=== PATIENT | female | born 1945 ===

== ENCOUNTER → 2024-03-01 09:42 | Outpatient (REF) | payer MEDICARE, OTHER, SELFPAY ==
[2024-03-01 11:45] LABS: ALT (SGPT) 16 U/L (0-35); AST (SGOT) 26 U/L (14-36); Albumin 4.6 g/dl (3.5-5.0); Alkaline Phosphatase 97 U/L (38-126); Blood Urea Nitrogen 14 mg/dl (7-17); Carbon Dioxide 26 mmol/L (22-30); Chloride 101 mmol/L (98-107); Glucose 105 mg/dl (70-99); HDL Cholesterol 59 mg/dl; LDL Cholesterol, Calculated 33 mg/dl; Potassium 4.4 mmol/L (3.5-5.1); Sodium 138 mmol/L (135-145); Total Bilirubin 0.5 mg/dl (0.2-1.3); Total Cholesterol 134 mg/dl (50-199); Total Protein 6.9 g/dl (6.3-8.2); Triglyceride 211 mg/dl (10-149); Very Low Density Lipoprotein 42 mg/dl (0-30); eGFR > 60.00
[2024-03-01 11:53] LABS: Glycohemoglobin (HgbA1c) 6.9 % (4.0-5.6)
[2024-03-01 12:38] LABS: Vitamin B12 491 pg/ml (239-931)
[2024-03-03 11:07] LABS: Intact PTH 106.8 pg/ml (13.6-85.8)
== END ==
LOC: OLABWPC 09:42
PROVIDERS: ATTENDING PHYSICIAN Family Medicine
DX: E83.52 Hypercalcemia (principal); E78.2 Mixed hyperlipidemia; E53.8 Deficiency of other specified B group vitamins; E11.22 Type 2 diabetes mellitus with diabetic chronic kidney disease
CPT/HCPCS: 36415; 80053; 80061; 82607; 83036; 83970

== ENCOUNTER 2024-05-29 09:03 | Emergency (ER) | payer MEDICARE, OTHER, SELFPAY ==
[2024-05-29 09:11] VITALS: BP 210/93
[2024-05-29 09:29] LABS: % Basophils 0.5 % (0-2); % Eosinophils 3.9 % (0-6); % Immature Granulocytes 0.6 % (0-0.5); % Lymphocytes 30.9 % (20.5-51.1); % Monocytes 5.8 % (1.7-9.3); % Neutrophils 58.3 % (42.2-75.2); Absolute Basophils 0.1 10^3/uL (0-0.2); Absolute Eosinophils 0.4 10^3/uL (0-0.7); Absolute Immature Granulocytes 0.1 10^3/uL (0-0.05); Absolute Lymphocytes 3.2 10^3/uL (1.2-3.4); Absolute Monocytes 0.6 10^3/uL (0.1-0.6); Absolute Neutrophils 6.1 10^3/uL (1.4-6.5); Hematocrit 41.8 % (37.0-47.0); Hemoglobin 14.4 g/dL (12.0-16.0); Mean Corp Hgb Conc. 34.4 g/dL (33.0-37.0); Mean Corpuscular Hgb 29.1 pg (27.0-31.0); Mean Corpuscular Volume 84.6 fL (81.0-99.0); Mean Platelet Volume 8.9 fL (7.4-10.4); Nucleated Red Blood Cells % 0 %; Platelet Count 297 10^3/uL (130-400); Red Blood Cell Count 4.94 10^6/uL (4.20-5.40); Red Cell Dist. Width 12.7 % (11.5-14.5); White Blood Cell Count 10.5 10^3/uL (4.8-10.8)
--- NOTE | 2024-05-29 09:29 | ED.GENMED ---
History of Present Illness
General
Chief Complaint: Blood Pressure Problem
Source: patient and ambulance crew
Time Seen by Provider: 05/29/24 09:08
History of Present Illness
History of Present Illness:
78-year-old female with past medical history of hypertension, hyperlipidemia and diabetes presenting to the emergency department for evaluation after she had an accidental fall this morning while taking her garbage to the garbage room. Patient
notes that she does have some balance difficulties and would normally ambulate with a walker however today she states that she was just carrying her garbage as it was a little bit heavier. Patient states that she fell forward striking the right
side of her forehead. This was reportedly witnessed by a staff member who contacted EMS and upon EMS arrival patient's blood pressure was noted to be greater than 200 systolically which is why patient was brought to the emergency room. Patient
denies any loss of consciousness, headache, visual changes, chest pain, shortness of breath, abdominal pain or any other concerns presently. She denies any use of anticoagulants or antiplatelet medications. No other concerns. Patient does state
that she had yet to take any of her blood pressure medications today.
Past History
Past History
ED Past Medical History: HTN, Hypercholesterolemia, NIDDM and Other (Cataracts, chronic back pain, depression)
ED Past Surgical History: Appendectomy and
Social History
Tobacco: Non-smoker
Alcohol: None
Drug: None
Personal:
Living: other ([facility], independent living)
Employment: Retired
Review of Systems
Review of Systems
All Other Systems: ROS reviewed and negative except as documented in HPI and ROS
Phy Exam
Physical Exam
Physical Exam:
GENERAL: Alert , in no apparent distress
HEAD: small contusion right frontal scalp/forehead
EYE: conjunctiva clear
NECK: Supple, no significant adenopathy.
ENT: o/p clr, mmm.
CARDIAC: Regular rate and rhythm
LUNGS: Clear breath sounds bilaterally, no acute respiratory distress, no wheezes/rales/rhonchi
NEUROLOGICAL: Alert and oriented
SKIN: Warm and dry, skin intact.
MUSCULOSKELETAL: well perfused. ERVIN x 4 without any pain
PSYCH: Normal and appropriate interaction.
Scores
Heart Failure Risk
Heart Failure Risk Score: Not Applicable
Heart Score for Chest Pain Patients
STEMI patient?: Not applicable
Withdrawal Assessment of Alcohol
Withdrawal Assessment Completed?: Not applicable
Course
Orders/Labs/Results
Orders:
Orders
05/29/24 09:11
Electrocardiogram (*1) Urgent
Reason for Study: Chest Pain
EKG- Treatment ONCE
05/29/24 09:12
Complete Blood Count/With Diff Urgent
Comprehensive Metabolic Panel Urgent
05/29/24 09:20
CT Head W/o Iv Contrast Urgent
Comment:
Reason For Exam: fall, head strike
Metoprolol [Lopressor] 100 mg PO NOW STA
Abnormal Lab Results
05/29/24
09:12
Abs Immat Gran (auto) 0.1 H 10^3/uL
(0-0.05)
Immature Gran % 0.6 H %
(0-0.5)
Sodium 134 L mmol/L
(135-145)
Glucose 139 H mg/dl
(70-99)
Calcium 10.7 H mg/dl
(8.4-10.2)
05/29/24 09:12
05/29/24 09:12
Vital Signs
Initial and Last Documented VS:
Initial Vital Signs
Temp Pulse Resp Pulse Ox
97.7 F 61 20 99
05/29/24 09:06 05/29/24 09:06 05/29/24 09:06 05/29/24 09:06
Last Documented Vital Signs
Temp Pulse Resp BP Pulse Ox
97.7 F 66 12 167/85 97
05/29/24 09:06 05/29/24 11:00 05/29/24 11:00 05/29/24 11:00 05/29/24 11:00
MDM/Problems Addressed
Differential Diagnosis Includes:
Mechanical trip and fall, asymptomatic hypertension, minimal concern for hypertensive urgency/emergency, forehead contusion, intracranial bleeding
MDM/Problems Addressed:
78-year-old female presenting to the emergency department for evaluation after an accidental slip and fall, incidentally found to be hypertensive. Patient is asymptomatic and without any concerns at this time. Physical exam does reveal a right
frontal scalp contusion. Given the signs of trauma will obtain a CT of the head to rule out any intracranial bleeding. EKG done for patient's hypertension which shows no acute ischemic changes and unchanged from previous back in July 2023.
Overall minimal to no concern for any hypertensive urgency/emergency.
Chronic conditions affecting care: HTN
Acute Exacerbation and/or Progression of Chronic Illness: HTN
*Radiology
Radiology exam reviewed: radiology read reviewed
*Pulse Oximetry
Patient hypoxic: no
*EKG
Interpreted by ED Provider?: Yes
Heart Rate: 59
Rate: bradycardiac
Rhythm: sinus
[place]: normal axis
Ischemia: non-specific ST changes (Depressions in lateral leads unchanged from previous)
*Presales Consultant Interpretation
Rate: bradycardiac
Rhythm: sinus
*Critical Care Note
Total Time (30-74mins, 75-104mins- exclusive of procedures): Not Applicable
Patient Management
Escalation/DeEscalation of care consider admission/obs:
Patient's blood pressure improved to 167/85. She remains asymptomatic. Head CT is negative for any acute intracranial pathologies. Patient is stable for discharge back to her independent living facility. Aware of return precautions to the ER.
ED Attending Note
-
Portions of this chart may have been created with voice recognition software.� Occasional wrong word or��sound alike� substitutions may have occurred due to the inherent limitations of voice recognition software.
Discharge Plan
Departure
Patient Disposition: Home (Routine Discharge)
Date of Disposition: 05/29/24
Time of Disposition: 10:46
Patient with high blood pressure during this ER visit?: Yes
Discharge Problem:
Accidental fall, Hypertension
Instructions: Preventing falls in adults
Prescriptions:
No Action
multivitamin [TAB A KATHARINA] Tablet
1 tab PO DAILY
atorvastatin 80 mg tablet
80 mg PO QPM
trazodone 50 mg Tablet
100 mg PO HS PRN (Reason: SLEEP)
metoprolol tartrate 100 mg Tablet
100 mg PO BID
clopidogrel [Plavix] 75 mg Tablet
75 mg PO QPM
amlodipine 5 mg tablet
5 mg PO DAILY
magnesium oxide 500 mg Tablet
500 mg PO DAILY
omeprazole 20 mg Capsule,Delayed Release(Dr/Ec)
20 mg PO DAILY
metformin 500 mg Tablet Extended Release 24hr
1,000 mg PO BID
fenofibrate 160 mg Tablet
160 mg PO DAILY
cholecalciferol (vitamin D3) [Vitamin D3] 125 mcg (5,000 unit) Tablet
125 mcg PO QPM
icosapent ethyl 1 gram capsule
2 g PO BID@0800,1700
Referrals:
UNKNOWN - PT DOES,NOT KNOW [Family Provider] -
Interventions
Interventions:
*Risk Screen - Suicide Last Done: 05/29/24 09:06
*General Assessment Last Done: 05/29/24 09:06
*Neglect/Abuse Screening Last Done: 05/29/24 09:06
*Nursing Disposition Last Done: 05/29/24 11:17
ED- Cardiac Assessment Last Done: 05/29/24 09:19
ED-Musculoskeletal Assessment Last Done: 05/29/24 09:19
ED- Neurological Assessment Last Done: 05/29/24 09:19
ED- Pulmonary Assessment Last Done: 05/29/24 09:19
ED-Skin Assessment Last Done: 05/29/24 09:19
Discharge Date and Time
Discharge Date/Time: 05/29/24 11:18
Print Language: YORUBA
[2024-05-29 09:44] LABS: ALT (SGPT) 18 U/L (0-35); AST (SGOT) 28 U/L (14-36); Albumin 4.4 g/dl (3.5-5.0); Alkaline Phosphatase 113 U/L (38-126); Blood Urea Nitrogen 17 mg/dl (7-17); Calcium 10.7 mg/dl (8.4-10.2); Carbon Dioxide 22 mmol/L (22-30); Chloride 101 mmol/L (98-107); Estimated Creatinine Clearance 44 ml/min; Glucose 139 mg/dl (70-99); Potassium 4.7 mmol/L (3.5-5.1); Sodium 134 mmol/L (135-145); Total Bilirubin 0.5 mg/dl (0.2-1.3); Total Protein 6.6 g/dl (6.3-8.2); eGFR > 60.00
[2024-05-29] MEDS: LOPRESSOR 100 MG PO (09:52)
[2024-05-29 10:00] VITALS: BP 170/86
[2024-05-29 10:35] VITALS: BP 177/82
[2024-05-29 11:00] VITALS: BP 167/85
== END 2024-05-29 11:18 | disposition home or self-care (01) ==
LOC: EMR 09:03
PROVIDERS: Physician Assistant Medical; EMERGENCY PHYSICIAN Student in an Organized Health Care Education/Training Program
DX: S00.03XA Contusion of scalp, initial encounter (principal); W01.0XXA Fall on same level from slipping, tripping and stumbling without subsequent striking against object, initial encounter; I10 Essential (primary) hypertension; E78.00 Pure hypercholesterolemia, unspecified; E11.36 Type 2 diabetes mellitus with diabetic cataract; G89.29 Other chronic pain; M54.9 Dorsalgia, unspecified; F32.A Depression, unspecified; Z88.0 Allergy status to penicillin; Z88.2 Allergy status to sulfonamides; Z88.8 Allergy status to other drugs, medicaments and biological substances
CPT/HCPCS: 99284; 70450; 80053; 85025; 93005

== ENCOUNTER 2024-08-03 10:38 | Emergency (ER) | payer MEDICARE, OTHER, SELFPAY ==
[2024-08-03 10:43] VITALS: BP 213/79
--- NOTE | 2024-08-03 10:55 | ED.MUSCINJ ---
HPI-Injury
General
Chief Complaint: Musculo-Skeletal Complaint
Source: patient
Exam Limitations: none
Time Seen by Provider: 08/03/24 10:40
History of Present Illness-Injury
Initial Injury comments:
78-year-old female presents via EMS from [facility]. She lives independently. She notes increased back pain today. She was unable to get out of the bed secondary to back pain. She states she has a history of compression fractures in
her lower back. She denies leg pain numbness or tingling. She denies any weakness. No recent fever or abdominal pain. No other complaints at this time
Past History
Past History
ED Past Medical History: HTN, Hypercholesterolemia, NIDDM and Other (Cataracts, chronic back pain, depression)
ED Past Surgical History: Appendectomy and
Social History
Tobacco: Non-smoker
Alcohol: None
Drug: None
Personal:
Living: other ([facility])
Employment: Retired
Phy Exam
Physical Exam
Physical Exam:
General: Well-appearing female no acute respiratory distress
HEENT: Normocephalic atraumatic
Heart: Regular rate and rhythm no murmurs
Lungs: Clear no wheeze
Musculoskeletal exam: Patient is tender over the lower lumbar spine good range of motion all extremities neurologic: Alert and oriented good sensation to the lower extremities
Skin warm
Injury Course
Orders/Labs/Results
Orders:
Orders
08/03/24 10:54
CR Lumbar Spine 2 Or 3 Views Urgent
Comment:
Reason For Exam: back pain
MDM/Problems Addressed
Differential Diagnosis Includes:
Patient with lower back pain. No new injury. Consider lumbar strain versus worsening compression fractures. She denies abdominal pain. Vital signs are stable.
X-rays pending
*Critical Care Note
Total Time (30-74mins, 75-104mins- exclusive of procedures): Not Applicable
Update Note
Update Note:
X-rays show degenerative disc disease at L2-L3 with other degenerative changes but no acute findings. Patient reassured. She was ambulatory here to the bathroom. Stable for discharge back to facility
ED Attending Note
-
Portions of this chart may have been created with voice recognition software.� Occasional wrong word or��sound alike� substitutions may have occurred due to the inherent limitations of voice recognition software.
Discharge Plan
Departure
Patient Disposition: Home (Routine Discharge)
Date of Disposition: 08/03/24
Time of Disposition: 12:30
Patient with high blood pressure during this ER visit?: No
Discharge Problem:
DDD (degenerative disc disease)
Instructions: Muscle and Bone Pain (DC)
Prescriptions:
No Action
multivitamin [TAB A KATHARINA] Tablet
1 tab PO DAILY
atorvastatin 80 mg tablet
80 mg PO QPM
trazodone 50 mg Tablet
100 mg PO HS PRN (Reason: SLEEP)
metoprolol tartrate 100 mg Tablet
100 mg PO BID
clopidogrel [Plavix] 75 mg Tablet
75 mg PO QPM
amlodipine 5 mg tablet
5 mg PO DAILY
magnesium oxide 500 mg Tablet
500 mg PO DAILY
omeprazole 20 mg Capsule,Delayed Release(Dr/Ec)
20 mg PO DAILY
metformin 500 mg Tablet Extended Release 24hr
1,000 mg PO BID
fenofibrate 160 mg Tablet
160 mg PO DAILY
cholecalciferol (vitamin D3) [Vitamin D3] 125 mcg (5,000 unit) Tablet
125 mcg PO QPM
icosapent ethyl 1 gram capsule
2 g PO BID@0800,1700
Referrals:
PRIVATE,PHYSICIAN [Family Provider] -
Activity Restrictions/Additional Instructions:
Continue your current medications peer return here for worsening symptoms otherwise follow-up with your doctor
Interventions
Interventions:
*Risk Screen - Suicide Last Done: 08/03/24 10:43
*General Assessment Last Done: 08/03/24 10:43
*Neglect/Abuse Screening Last Done: 08/03/24 10:43
ED- Fall Risk Assessment Last Done: 08/03/24 10:43
*ED COVID-19 Vaccine History Last Done: 08/03/24 10:43
ED-Musculoskeletal Assessment Last Done: 08/03/24 10:49
Discharge Date and Time
Print Language: INDONESIAN
== END 2024-08-03 13:05 | disposition home or self-care (01) ==
LOC: EMR 10:38
PROVIDERS: EMERGENCY PHYSICIAN Student in an Organized Health Care Education/Training Program
DX: M51.369 Other intervertebral disc degeneration, lumbar region without mention of lumbar back pain or lower extremity pain (principal); I10 Essential (primary) hypertension; E11.36 Type 2 diabetes mellitus with diabetic cataract; M48.56XA Collapsed vertebra, not elsewhere classified, lumbar region, initial encounter for fracture; G89.29 Other chronic pain; E78.00 Pure hypercholesterolemia, unspecified; F32.A Depression, unspecified; Z88.0 Allergy status to penicillin; Z88.2 Allergy status to sulfonamides; Z88.8 Allergy status to other drugs, medicaments and biological substances
CPT/HCPCS: 99283; 72100

== ENCOUNTER 2025-02-14 10:39 | Emergency (ER) | payer MEDICARE, OTHER, SELFPAY ==
[2025-02-14 10:50] VITALS: BP 166/90
[2025-02-14 10:54] VITALS: BP 166/90
[2025-02-14 10:55] VITALS: BMI 24.7
[2025-02-14 11:00] VITALS: BP 156/80
[2025-02-14 12:05] LABS: % Basophils 0.4 % (0-2); % Eosinophils 0.2 % (0-6); % Immature Granulocytes 0.4 % (0-0.5); % Lymphocytes 10.6 % (20.5-51.1); % Monocytes 6.5 % (1.7-9.3); % Neutrophils 81.9 % (42.2-75.2); Absolute Lymphocytes 1.1 10^3/uL (1.2-3.4); Absolute Monocytes 0.7 10^3/uL (0.1-0.6); Absolute Neutrophils 8.1 10^3/uL (1.4-6.5); Hematocrit 41.8 % (37.0-47.0); Hemoglobin 14.3 g/dL (12.0-16.0); Mean Corp Hgb Conc. 34.2 g/dL (33.0-37.0); Mean Corpuscular Hgb 28.7 pg (27.0-31.0); Mean Corpuscular Volume 83.9 fL (81.0-99.0); Mean Platelet Volume 9.1 fL (7.4-10.4); Nucleated Red Blood Cells % 0 %; Platelet Count 306 10^3/uL (130-400); Red Blood Cell Count 4.98 10^6/uL (4.20-5.40); Red Cell Dist. Width 13.5 % (11.5-14.5); White Blood Cell Count 9.9 10^3/uL (4.8-10.8)
[2025-02-14 12:22] LABS: ALT (SGPT) 38 U/L (0-35); AST (SGOT) 36 U/L (14-36); Albumin 4.3 g/dl (3.5-5.0); Alkaline Phosphatase 163 U/L (38-126); Blood Urea Nitrogen 12 mg/dl (7-17); Calcium 10.6 mg/dl (8.4-10.2); Carbon Dioxide 21 mmol/L (22-30); Chloride 103 mmol/L (98-107); Estimated Creatinine Clearance 46 ml/min; Glucose 198 mg/dl (70-99); Potassium 4.3 mmol/L (3.5-5.1); Sodium 137 mmol/L (135-145); Total Bilirubin 0.8 mg/dl (0.2-1.3); Total Protein 6.8 g/dl (6.3-8.2); eGFR > 60.00
[2025-02-14 12:34] LABS: Urine Albumin 3+ (Neg - Trace); Urine Bilirubin Negative (Negative); Urine Character Slightly Cloudy (Clear); Urine Color Yellow; Urine Glucose 2+ (Negative); Urine Ketone Negative (Negative); Urine Leukocyte 2+ (Negative); Urine Nitrite Negative (Negative); Urine Occult Blood 3+ (Negative); Urine Urobilinogen Negative (Neg - 1+); Urine pH 6.5 (5.0-9.0)
[2025-02-14 13:06] LABS: Urine Bacteria Many (Negative); Urine Squamous Cell 0-2 /LPF (Few); Urine White Cell 16-20 /HPF (0-5)
--- NOTE | 2025-02-14 13:17 | ED.GENMED ---
History of Present Illness
General
Chief Complaint: Fall
Time Seen by Provider: 02/14/25 10:53
History of Present Illness
History of Present Illness:
79-year-old female presents to the emergency department from [facility] due to an unwitnessed fall. Patient initially informs me that she did not fall however eventually admits that she slipped off her toilet while going to the
bathroom. She was not able to stand up independently and thus was brought into the emergency department for evaluation. She currently reports right hip pain. She states this is chronic and not related to her fall. She also denies any head injury
or headache currently. Not on any coagulants but does take Plavix. No recent fevers or chills. I spoke with her daughter who informs me that she does have waxing and waning confusion but seems to be worse in the morning potentially related to
trazodone at nighttime. She has no immediate concerns for her safety at this time
Past History
Past History
ED Past Medical History: HTN, Hypercholesterolemia, NIDDM and Other (Cataracts, chronic back pain, depression)
ED Past Surgical History: Appendectomy and
Social History
Tobacco: Non-smoker
Alcohol: None
Drug: None
Personal:
Living: other ([facility])
Employment: Retired
Review of Systems
Review of Systems
Allergies reviewed?: Yes
All Other Systems: ROS reviewed and negative except as documented in HPI and ROS
Phy Exam
Physical Exam
Physical Exam:
GEN: Well appearing, NAD, WDWN
Eyes: PERRLA, EOMs intact, no scleral icterus
HENT: NCAT, oral mucosa moist
Lungs: CTAB, no wheezes, rales, rhonchi, normal chest wall excursion
Cardiac: RRR, no M/R/G, no peripheral edema. Radial pulses 2+ bilat
Abdomen: S, NT, ND, NABS, no masses or hepatosplenomegaly
Neuro: AO x 3, no focal deficits to BUE/BLE, normal sensation throughout
MSK: No gross deformity or ecchymosis. No shortening or external rotation of the right lower extremity
Skin: No rashes, petechiae. Normal color, no pallor or jaundice.
Psych: Calm, cooperative, proper hygiene
Course
Orders/Labs/Results
Orders:
Orders
02/14/25 10:53
EKG [Electrocardiogram (*1)] Urgent
Reason for Study: Other
Other Reason for Exam: unwitnessed fall
02/14/25 10:54
EKG- Treatment ONCE
02/14/25 11:23
CT Head W/o Iv Contrast Urgent
Comment:
Reason For Exam: fall unwitnessed
CR Hip - RT w/wo Pel 2-3 Vw* Urgent
Comment:
Reason For Exam: fall, R hip pain
Include a pelvis x-ray?: Yes
02/14/25 11:39
Complete Blood Count/With Diff Urgent
Comprehensive Metabolic Panel Urgent
Urinalysis Reflex To Culture Urgent
Date Specimen was Collected: 02/14/25
Time Specimen was Collected: 11:38
Urine Microscopic Reflex Cult Urgent
Urine Culture Urgent
FLOR Source: U
Specimen Description:
Date Specimen was Collected: 02/14/25
Time Specimen was Collected: 11:38
02/14/25 13:17
Fosfomycin [Monurol] 3 gm PO ONCE ONE
Abnormal Lab Results
02/14/25
11:39
Absolute Neuts (auto) 8.1 H 10^3/uL
(1.4-6.5)
Absolute Lymphs (auto) 1.1 L 10^3/uL
(1.2-3.4)
Absolute Monos (auto) 0.7 H 10^3/uL
(0.1-0.6)
Neutrophils % 81.9 H %
(42.2-75.2)
Lymphocytes % 10.6 L %
(20.5-51.1)
Carbon Dioxide 21 L mmol/L
(22-30)
Glucose 198 H mg/dl
(70-99)
Calcium 10.6 H mg/dl
(8.4-10.2)
ALT 38 H U/L
(0-35)
Alkaline Phosphatase 163 H U/L
(38-126)
Ur Occult Blood Reflex 3+ A
(Negative)
Leukocyte Esterase Rfl 2+ A
(Negative)
Urine RBC 3-6 A /HPF
(0-2)
Urine WBC (Reflex) 16-20 A /HPF
(0-5)
Urine Bacteria (Reflex) Many A
(Negative)
Urine Glucose 2+ A
(Negative)
Urine Albumin (Reflex) 3+ A
(Neg - Trace)
02/14/25 11:39
02/14/25 11:39
Vital Signs
Initial and Last Documented VS:
Initial Vital Signs
BP Pulse Ox
166/90 98
02/14/25 10:50 02/14/25 10:50
Last Documented Vital Signs
Temp Pulse Resp BP Pulse Ox
98.1 F 73 19 142/81 91
02/14/25 13:30 02/14/25 13:51 02/14/25 13:51 02/14/25 14:15 02/14/25 13:51
MDM/Problems Addressed
MDM/Problems Addressed:
Patient does have occasional flight of ideas and waxing and waning confusion but for the most part is oriented times unable to follow commands. Her workup reveals a UTI but no evidence for traumatic injuries. Daughter is comfortable with her being
discharged home after antibiotic treatment. Will give single dose of fosfomycin
*Critical Care Note
Total Time (30-74mins, 75-104mins- exclusive of procedures): Not Applicable
ED Attending Note
-
Portions of this chart may have been created with voice recognition software.� Occasional wrong word or��sound alike� substitutions may have occurred due to the inherent limitations of voice recognition software.
Discharge Plan
Departure
Patient Disposition: Home (Routine Discharge)
Date of Disposition: 02/14/25
Time of Disposition: 14:09
Patient with high blood pressure during this ER visit?: No
Discharge Problem:
Urinary tract infection
Instructions: Urinary tract infections in adults
Prescriptions:
No Action
multivitamin [TAB A KATHARINA] Tablet
1 tab PO DAILY
atorvastatin 80 mg tablet
80 mg PO QPM
trazodone 50 mg Tablet
100 mg PO HS PRN (Reason: SLEEP)
metoprolol tartrate 100 mg Tablet
100 mg PO BID
clopidogrel [Plavix] 75 mg Tablet
75 mg PO QPM
amlodipine 5 mg tablet
5 mg PO DAILY
magnesium oxide 500 mg Tablet
500 mg PO DAILY
omeprazole 20 mg Capsule,Delayed Release(Dr/Ec)
20 mg PO DAILY
metformin 500 mg Tablet Extended Release 24hr
1,000 mg PO BID
fenofibrate 160 mg Tablet
160 mg PO DAILY
cholecalciferol (vitamin D3) [Vitamin D3] 125 mcg (5,000 unit) Tablet
125 mcg PO QPM
icosapent ethyl 1 gram capsule
2 g PO BID@0800,1700
lidocaine [Lidoderm] 5 % adhesive patch,medicated
1 patch topical DAILY Qty: 15 0RF
Referrals:
Sigifredo Donnelly MD [Family Provider] -
Activity Restrictions/Additional Instructions:
Christine received fosfomycin, an adequate single dose antibiotic for urinary infections
Interventions
Interventions:
*Risk Screen - Suicide Last Done: 02/14/25 11:17
*General Assessment Last Done: 02/14/25 11:17
*Neglect/Abuse Screening Last Done: 02/14/25 11:17
*ED- Fall Risk Assessment Last Done: 02/14/25 15:16
*ED COVID-19 Vaccine History Last Done: 02/14/25 11:17
*Nursing Disposition Last Done: 02/14/25 15:16
ED-Musculoskeletal Assessment Last Done: 02/14/25 15:16
ED- Neurological Assessment Last Done: 02/14/25 11:33
ED-Skin Assessment Last Done: 02/14/25 11:33
Discharge Date and Time
Discharge Date/Time: 02/14/25 14:21
Print Language: ICELANDIC
[2025-02-14] MEDS: MONUROL 3 GM PO (13:48)
[2025-02-14 14:15] VITALS: BP 142/81
== END 2025-02-14 14:21 | disposition home or self-care (01) ==
LOC: EMR 10:39
PROVIDERS: Physician Assistant; EMERGENCY PHYSICIAN Emergency Medicine; FAMILY PHYSICIAN Family Medicine
DX: N39.0 Urinary tract infection, site not specified (principal); I10 Essential (primary) hypertension; E78.00 Pure hypercholesterolemia, unspecified; E11.9 Type 2 diabetes mellitus without complications; F32.A Depression, unspecified
CPT/HCPCS: 99284; 70450; 73502; 80053; 81003; 81015; 85025; 87086; 87088; 93005

== ENCOUNTER → 2025-07-19 10:44 | Outpatient (REF) | payer MEDICARE, OTHER, SELFPAY ==
[2025-07-19 11:54] LABS: Hematocrit 45.7 % (37.0-47.0); Hemoglobin 15.0 g/dL (12.0-16.0); Mean Corp Hgb Conc. 32.8 g/dL (33.0-37.0); Mean Corpuscular Volume 85.1 fL (81.0-99.0); Nucleated Red Blood Cells % 0 %; Platelet Count 287 10^3/uL (130-400); Red Cell Dist. Width 14.5 % (11.5-14.5)
[2025-07-19 12:25] LABS: ALT (SGPT) 19 U/L (0-35); AST (SGOT) 26 U/L (14-36); Albumin 4.7 g/dl (3.5-5.0); Alkaline Phosphatase 104 U/L (38-126); Blood Urea Nitrogen 15 mg/dl (7-17); Calcium 11.2 mg/dl (8.4-10.2); Carbon Dioxide 27 mmol/L (22-30); Chloride 104 mmol/L (98-107); Glucose 138 mg/dl (70-99); HDL Cholesterol 58 mg/dl; LDL Cholesterol, Calculated 128 mg/dl; Potassium 4.6 mmol/L (3.5-5.1); Sodium 139 mmol/L (135-145); Total Protein 7.2 g/dl (6.3-8.2); Very Low Density Lipoprotein 62 mg/dl (0-30); eGFR > 60.00
[2025-07-19 12:49] LABS: Glycohemoglobin (HgbA1c) 7.1 % (4.0-5.6)
[2025-07-19 13:14] LABS: Vitamin B12 311 pg/ml (239-931)
[2025-07-19 17:49] LABS: Microalb - Urine Creatinine 103.700 mg/dl
[2025-07-19 17:54] LABS: Microalbumin, Random Urine 8.8 mg/dl (0.6-1.7)
== END ==
LOC: REG 10:44
PROVIDERS: ATTENDING PHYSICIAN Family Medicine
DX: E11.9 Type 2 diabetes mellitus without complications (principal); I10 Essential (primary) hypertension; E53.8 Deficiency of other specified B group vitamins; E78.2 Mixed hyperlipidemia
CPT/HCPCS: 36415; 80053; 80061; 82043; 82570; 82607; 83036; 85025

== ENCOUNTER → 2025-08-13 12:50 | Outpatient (REF) | payer MEDICARE, OTHER, SELFPAY | LOC: PAVMRI 12:50 | PROVIDERS: ATTENDING PHYSICIAN Psychiatry & Neurology Neurology; FAMILY PHYSICIAN Family Medicine | DX: M54.16 Radiculopathy, lumbar region (principal) | CPT/HCPCS: 72148 ==